=== PATIENT | male | born 1970 | race Caucasian/White ===

== ENCOUNTER 2021-07-04 06:19 | Day surgery (SDC) | payer OTHER ==
[2021-06-29 11:31] VITALS: BMI 42.5
[~2021-07-04 06:19] MED LIST: LACTATED RINGERS 1,000 ML IV SCH
[2021-07-04 06:50] VITALS: TEMP 97.7
[2021-07-04 06:51] LABS: Glucose,Whole Blood 129 mg/dL (75-99)
[2021-07-04] MEDS ORDERED: PROPOFOL 10 MG/ML 20 ML VIAL IV ONE (07:22)
[2021-07-04] MEDS ORDERED: LIDOCAINE 1% INJ 10MG/ML (20 ML MDV) ONE (07:22)
--- NOTE | 2021-07-04 07:45 | P.PCN ---
Date of Procedure: 07/04/21 Procedure(s) Performed: BRIEF HISTORY: Patient is a 51-year-old pleasant white male scheduled for an elective colonoscopy as a part of the screening for colorectal neoplasia. He has family history of colon cancer diagnosed in his mother at age 55. PROCEDURE PERFORMED: Colonoscopy with snare polypectomy. PREOPERATIVE DIAGNOSIS: Screening for colon cancer and family history of colon cancer. IV sedation per Anesthesia. PROCEDURE: After informed consent was obtained, the patient, was brought into [facility] endoscopy unit. IV sedation was administered by Anesthesia under continuous monitoring. Digital rectal examination was normal. Initially the Olympus CF-160 flexible video colonoscope was then inserted in the rectum, gradually advanced into the cecum without any difficulty. Careful examination was performed as the scope was gradually being withdrawn. Ileocecal valve and the appendiceal orifice were visualized and appeared normal. Prep was excellent. Mucosa of the cecum, appeared normal. In the ascending colon there was a 1 cm polyp removed by snare polypectomy. In the hepatic flexure there was a 5 mm and 7 mm polyps removed by snare polypectomy. Rest of the ascending colon, transverse colon, descending colon, sigmoid colon, and rectum appeared normal. In the distal rectum just proximal to the dentate line there was a 1 cm polyp removed by snare polypectomy. Retroflexion was performed in the rectum and no lesions were seen. The patient tolerated the procedure well. IMPRESSION: 1 cm ascending colon polyp status post polypectomy 5 mm and 7 mm hepatic flexure polyp status post polypectomy 1 cm distal rectal polyp status post polypectomy RECOMMENDATIONS: Findings of this examination were discussed with the patient as well as his family. He was advised to follow with the biopsy results. If the biopsy report adenoma he can have a repeat colonoscopy in 3 years..
[2021-07-04 07:55] VITALS: RESP 18
[2021-07-04 08:09] VITALS: BP 133/90; PULSE 79
== END 2021-07-04 08:24 | disposition home or self-care (01) ==
LOC: ORWHC2ENDO 06:19
PROVIDERS: ATTEND Internal Medicine Gastroenterology
DX: Z12.11 Encounter for screening for malignant neoplasm of colon (principal); Z80.0 Family history of malignant neoplasm of digestive organs; D12.2 Benign neoplasm of ascending colon; K62.1 Rectal polyp
CPT/HCPCS: 45385; 88305; J2001; J2704